=== PATIENT | male | born 2000 | race Caucasian/White ===

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

== ENCOUNTER 2021-01-11 08:54 | Emergency (ER) | payer OTHER, SELFPAY ==
[2021-01-11 09:00] VITALS: BP 143/90; PULSE 87; RESP 18; TEMP 36.8; O2SAT 98; BMI 27.8
[2021-01-11] MEDS: ondansetron 2 mg/ML SDV 2 mL 4 MG IVP (09:19)
[2021-01-11] MEDS: sodium chloride 0.9% 500 ML 999 ML IV ×2 (09:19→11:13)
[2021-01-11 09:30] LABS: Basophils % 0.4 %; Eosinophils # 0.2 10^3/uL (0.0-0.8); Eosinophils % 3.2 %; Hematocrit 45.5 % (42.0-52.0); Hemoglobin 15.1 g/dL (11.7-16.6); Lymphocytes % 21.4 %; Mean Corpuscular HGB Conc 33.2 g/dL (30.0-36.0); Mean Corpuscular Hemoglobin 31.3 pg (28.0-34.0); Mean Corpuscular Volume 94.4 fL (80-94); Mean Platelet Volume 9.4 fL (7.4-10.4); Monocytes # 0.7 10^3/uL (0.2-0.9); Monocytes % 15.1 %; Neutrophils # 2.76 10^3/uL (1.8-8.0); Neutrophils % 59.7 %; Nucleated Red Blood Cells % 0 %; Platelet Count 259 10^3/cmm (130-400); Red Blood Count 4.82 10^6/uL (4.1-5.3); Red Cell Distribution Width 11.8 % (12.1-15.1); White Blood Count 4.6 10^3/uL (4.5-13.0)
[2021-01-11 09:45] VITALS: BP 148/88; PULSE 78; RESP 16; O2SAT 98
--- NOTE | 2021-01-11 09:49 | W.ED.NAVMDI ---
HPI - Nausea/Vomiting/Diarrhea General: Chief complaint: Nausea/Vomiting/Diarrhea Stated complaint: vomiting Time Seen by Provider: 01/11/21 08:58 Source: patient Mode of arrival: ambulatory Limitations: no limitations History of Present Illness: HPI Narrative: Pleasant 20-year-old male patient presents to the emergency department with onset of nausea vomiting and one episode of diarrhea that started 01/09/2021. He denies ill contacts. He reports is trying to eat and drink fluids but continues to experience vomiting. He states took [id number] antacids without improvement. He states antacids seem to make it worse. He denies history of abdominal surgeries, reports history of seizure disorder but was taken off seizure medications approximately 6 months ago by his primary care, states did not need them. Last seizure was approximately 1 year ago. He denies abdominal pain but reports a tightness around his bellybutton, states worsens with vomiting. MD elicited complaint: nausea, vomiting and diarrhea Description of vomiting: food contents Description of diarrhea: watery Associated nausea: Yes Associated abdominal pain: Yes Location of pain: Periumbilical Severity: moderate Relieving factors: none Associated symtoms: Reports cough (States 2 days ago but stopped), fatigue, fevers/chills and nausea; Denies anxiety, change in vision, chest pain, dysuria, headache(s), malaise or palpitations Treatment prior to arrival: other OTC medicine Review of Systems General: Reports: 10 or more systems reviewed and unremarkable except in HPI and below Const: Reports: chills, change in appetite and fatigue; Denies: fever(s) or malaise Eyes: Denies: change in vision, blurry vision, eye discomfort, eye redness, increased production of tears or seeing flashes ENMT: Denies: throat pain, uvular edema, odynophagia, swelling of lips/tongue, dental pain, ear or mastoid pain, disequilibrium, nasal discharge, nasal congestion, nasal obstruction, post nasal drip or sinus pain Card: Denies: chest pain, palpitations, irregular heart rhythm, swelling of feet/ankles, dyspnea on exertion or orthopnea Resp: Denies: dyspnea, productive cough, non-productive cough, wheezing or chest congestion GI: Reports: abdominal pain, nausea, vomiting and GI cramping; Denies: hematemesis, coffee ground emesis, heartburn, diarrhea, constipation, belching, change in stool character, hematochezia or melena : Denies: difficulty urinating, dysuria, urinary urgency or urinary incontinence Musc: Denies: neck pain, back pain, joint pain or joint warmth Skin/Breast: Denies: rash, pruritus, erythema or changing lesions Neuro: Denies: headache(s), numbness in extremities, weakness in extremities, difficulty walking or behavioral changes Psych: Denies: anxiety or depression Ras/Lymph: Denies: easy bruising PFSH ED PFSH: Medical History (Updated 01/11/21 @ 12:20 by JUSTUS Lepe) Asthma Migraine Seizure disorder Vitamin D deficiency Surgical History History of angiography on brain at [facility] 2018 History of surgical procedure on eye proper using laser Left due to [place] Syndrome 2016 Leg injury 2005 left leg ran over brush hog surgical repair Family History Mother Diabetes Father Hypertension Other Depression Hyperlipidemia Denies family history of CAD (coronary artery disease) Family history of premature coronary artery disease Social History Smoking and tobacco status: never smoked Second hand smoke exposure: No Smoking risk assessment/counseling performed?: No Alcohol intake: never Desire information about alcohol rehabilitation?: No Counseling given: No Desire information about substance/drug rehabilitation?: No Counseling given: No Caregiver/support person: Yes Lives independently: No Marital status: Single Number of children: 0 Highest education level completed: 12th Grade, No Diploma service: No Current occupational status: student History of recent travel: No Current gender identity: Male Physical Exam Const: COMMON NORMALS: no acute distress, patient oriented x3, healthy appearing, alert and well nourished GENERAL APPEARANCE: cooperative, comfortable, well kempt, well developed and well hydrated; not anxious, not ill appearing and not frail appearing NUTRITIONAL APPEARANCE: thin ORIENTATION/CONSCIOUSNESS: Yes awake, Yes oriented to person, Yes oriented to place and Yes oriented to time HENMT: COMMON NORMALS: normocephalic, atraumatic, EAC's normal, TM's normal bilaterally, Normal external nose present and moist oral mucous membranes HEAD & SCALP: normal to inspection, normocephalic and atraumatic FACE & SINUS: normal facial exam, sinuses nontender and face symmetric NOSE: Normal external nose present, Normal nares present and No nasal polyps present EXTERNAL AUDITORY CANAL: EAC's normal TYMPANIC MEMBRANE: TM's normal bilaterally MOUTH: Normal oral and palatal mucosa present, lip normal and tongue normal THROAT: posterior oropharynx normal, tonsils normal and uvula midline; no uvular edema Eye: COMMON NORMALS: Equal, round and reactive pupils present, EOMs intact bilaterally and conjunctivae normal GENERAL EYE: appearance normal, both eyes and all related structures PERIORBITAL: periorbital findings normal CONJUNCTIVA: Yes conjunctivae normal PUPIL: Yes Equal, round and reactive pupils present Neck/C-Spine: COMMON NORMALS: full ROM and no lymphadenopathy GENERAL: Yes normal visual inspection and Yes trachea midline CERVICAL SPINE: Yes cervical ROM normal Lymph: LYMPHATIC: no lymphadenopathy noted Chest: COMMONS NORMALS: normal inspection of the chest and normal palpation of entire chest wall Resp: COMMON NORMALS: normal respiratory effort, No retractions, No use of accessory muscles and clear to auscultation bilaterally EFFORT & INSPECTION: Yes able to speak in complete sentences, No labored and No audible wheezes AUSCULTATION: clear to auscultation bilaterally Cardio: COMMON NORMALS: regular rate, regular rhythm, S1 normal heart sound present, S2 normal heart sound present and Peripheral pulses 2+ throughout RATE: regular rate RHYTHM: regular rhythm HEART SOUNDS: S1 normal heart sound present and S2 normal heart sound present PERIPHERAL PULSES: Peripheral pulses 2+ throughout GI: COMMON NORMALS: Normal to inspection, nondistended, normoactive bowel sounds present, Soft to palpation and non-tender INSPECTION: Yes normal to inspection, No abdominal wall ecchymosis, No abdominal distension, No central obesity and No Fluid wave present PALPATION: Yes Soft to palpation PERCUSSION: no fluid wave : COMMON NORMALS: Yes no CVA tenderness BLADDER/KIDNEY EXAM: Yes no CVA tenderness Back/Pelvis: COMMON NORMALS: no CVA tenderness and thoracic and lumbar spine normal to inspection; negative for no thoracic nor lumbar tenderness, negative for thoraco-lumbar ROM normal and negative for straight leg raise negative bilaterally Extremity: COMMON NORMALS: normal to inspection and capillary refill normal Neuro: COMMON NORMALS: patient oriented x3 and no focal motor deficits SENSORIUM/ORIENTATION: Yes alert, Yes oriented to person, Yes oriented to place and Yes oriented to time SPEECH: speech normal GAIT: Yes Normal gait present MOTOR EXAM: 5/5 motor strength present throughout Psych: COMMON NORMALS: mental status grossly normal, Normal thought process present and cooperative APPEARANCE: Yes well kempt ACTIVITY/MOTOR BEHAVIOR: Yes appropriate eye contact THOUGHT PROCESS: Normal thought process present Skin: COMMON NORMALS: no rashes or lesions noted and turgor normal GENERAL SKIN EXAM: no rashes or lesions noted and turgor normal Course Vital Signs: Vital signs: Vital Signs Temperature 98.2 F 01/11/21 09:00 Pulse Rate 78 01/11/21 09:45 Respiratory Rate 16 01/11/21 09:45 Blood Pressure 148/88 01/11/21 09:45 Pulse Oximetry 98 01/11/21 09:45 MDM - Nausea/Vomiting/Diarrhea MDM Narrative: Medical decision making narrative: 20-year-old male patient presents to the emergency department with acute nausea vomiting x48 hours. 1 L normal saline, Zofran and Pepcid was administered in the ED. CT scan of the abdomen and pelvis completed due to patient's complaint of periumbilical discomfort and nausea vomiting - no acute inflammatory process; question mesenteric adenitis as multiple lymph nodes majority subcentimeter or present. Donald was able to tolerate water and ice chips without nausea vomiting. He reports nausea completely resolved with use of Zofran and Pepcid. He reports felt much better and requests to go home. He was advised to follow-up with his primary care tomorrow if nausea persisted. He was also advised to return to the emergency department if he continued to vomit despite use of Zofran. Bilirubin noted to be slightly elevated, 1.6; lactic acid 1.0, remaining serology findings suggest mild dehydration. Lab Data: Labs: Lab Results 01/11/21 01/11/21 01/11/21 Range/Units 09:25 09:25 09:25 WBC 4.6 (4.5-13.0) 10^3/ uL RBC 4.82 (4.1-5.3) 10^6/u L Hgb 15.1 (11.7-16.6) g/dL Hct 45.5 (42.0-52.0) % MCV 94.4 H (80-94) fL MCH 31.3 (28.0-34.0) pg MCHC 33.2 (30.0-36.0) g/dL RDW 11.8 L (12.1-15.1) % Plt Count 259 (130-400) 10^3/c mm MPV 9.4 (7.4-10.4) fL Neut % (Auto) 59.7 % Lymph % (Auto) 21.4 % [place] % (Auto) 15.1 % Eos % (Auto) 3.2 % Baso % (Auto) 0.4 % Neut # (Auto) 2.76 (1.8-8.0) 10^3/u L Lymph # (Auto) 1.0 L (1.5-6.5) 10^3/u L [place] # (Auto) 0.7 (0.2-0.9) 10^3/u L Eos # (Auto) 0.2 (0.0-0.8) 10^3/u L Baso # (Auto) 0.0 (0.0-0.1) 10^3/u L Nucleated RBC % (a uto) 0 % Nucleated RBCs # 0.0 /100WBC Sodium 138 (136-145) mmol/L Potassium 3.9 (3.5-5.1) mmol/L Chloride 100 (98-107) mmol/L Carbon Dioxide 28 (22-29) mmol/L Anion Gap 13.9 (5-19) BUN 12 (6-20) mg/dL Creatinine 0.9 (0.7-1.2) mg/dL GFR Calculation 108.7 (90-130) mL/min Glucose 93 (65-115) mg/dL Calculated Osmolal ity 285 (285-295) mOsm/k g Lactate 1.0 (0.5-2.2) mmol/L Calcium 8.8 (8.5-10.5) mg/dL Total Bilirubin 1.6 H (0.15-1.2) mg/dL AST 20 (0-40) U/L ALT 13 (0-41) U/L Alkaline Phosphata se 73 (40-130) IU/L Total Protein 6.8 (6.6-8.7) g/dL Albumin 4.5 (3.5-5.2) g/dL Globulin 2.3 (1.3-4.6) g/dL Lipase 18 (13-60) U/L Urine Color (Yellow) Urine Appearance (CLEAR) Urine pH (5-7) Ur Specific Gravit y (1.005-1.030) Urine Protein (Negative) Urine Glucose (UA) (Normal) Urine Ketones (Negative) Urine Blood (Negative) Urine Nitrate (Negative) Urine Bilirubin (Negative) Urine Urobilinogen (Negative) mg/dL Ur Leukocyte Denita ase (Negative) 01/11/21 Range/Units 09:50 WBC (4.5-13.0) 10^3/ uL RBC (4.1-5.3) 10^6/u L Hgb (11.7-16.6) g/dL Hct (42.0-52.0) % MCV (80-94) fL MCH (28.0-34.0) pg MCHC (30.0-36.0) g/dL RDW (12.1-15.1) % Plt Count (130-400) 10^3/c mm MPV (7.4-10.4) fL Neut % (Auto) % Lymph % (Auto) % [place] % (Auto) % Eos % (Auto) % Baso % (Auto) % Neut # (Auto) (1.8-8.0) 10^3/u L Lymph # (Auto) (1.5-6.5) 10^3/u L [place] # (Auto) (0.2-0.9) 10^3/u L Eos # (Auto) (0.0-0.8) 10^3/u L Baso # (Auto) (0.0-0.1) 10^3/u L Nucleated RBC % (a uto) % Nucleated RBCs # /100WBC Sodium (136-145) mmol/L Potassium (3.5-5.1) mmol/L Chloride (98-107) mmol/L Carbon Dioxide (22-29) mmol/L Anion Gap (5-19) BUN (6-20) mg/dL Creatinine (0.7-1.2) mg/dL GFR Calculation (90-130) mL/min Glucose (65-115) mg/dL Calculated Osmolal ity (285-295) mOsm/k g Lactate (0.5-2.2) mmol/L Calcium (8.5-10.5) mg/dL Total Bilirubin (0.15-1.2) mg/dL AST (0-40) U/L ALT (0-41) U/L Alkaline Phosphata se (40-130) IU/L Total Protein (6.6-8.7) g/dL Albumin (3.5-5.2) g/dL Globulin (1.3-4.6) g/dL Lipase (13-60) U/L Urine Color Dark yellow (Yellow) Urine Appearance Clear (CLEAR) Urine pH 6.5 (5-7) Ur Specific Gravit y 1.015 (1.005-1.030) Urine Protein Neg (Negative) Urine Glucose (UA) Norm (Normal) Urine Ketones 2+ H (Negative) Urine Blood Neg (Negative) Urine Nitrate Negative (Negative) Urine Bilirubin Neg (Negative) Urine Urobilinogen 4 H (Negative) mg/dL Ur Leukocyte Denita ase Negative (Negative) Imaging Data^: CT Abd/Pel: Radiologist's impression: [place] [address] CT Scan Report Signed Patient: Lang Booth #: [id number] : 2000Acct#:[id number] Age/Sex: 20 MADM Date: 01/11/21 Loc: ERRoom/Bed: Attending Dr: Ordering Provider/Ordering MD: Ligia Perkins Date of Service: 01/11/21 Procedure(s): CT abdomen pelvis w con* [id number] Accession Number(s): [id number] Report Number: [id number] PROCEDURE INFORMATION: Exam: CT Abdomen And Pelvis With Contrast Exam date and time: 01/11/2021 10:39 AM Age: 20 years old Clinical indication: Abnormal findings; Abnormal lab test; Other: Elevated bilirubin; Additional info: N/v elevated bilirubin TECHNIQUE: Imaging protocol: Computed tomography of the abdomen and pelvis with contrast. Radiation optimization: All CT scans at this facility use at least one of these dose optimization techniques: automated exposure control; mA and/or kV adjustment per patient size (includes targeted exams where dose is matched to clinical indication); or iterative reconstruction. Contrast material: OMNI 300; Contrast volume: 95 ml; Contrast route: INTRAVENOUS (IV); COMPARISON: US Renal Kidney Structu* [id number] 02/24/2018 3:54 PM RADIATION DOSE METRICS: Total DLP (mGy-cm): 1465.2 FINDINGS: Pleural spaces: No acute airspace or pleural disease. Liver: No focal hepatic mass. Gallbladder and bile ducts: No cholelithiasis or biliary ductal dilatation. Pancreas: No pancreatic mass or ductal dilatation. Spleen: No splenomegaly. 14 mm accessory spleen. Adrenal glands: Unremarkable adrenals. Kidneys and ureters: Normal renal morphology. No hydronephrosis. Stomach and bowel: No significant small bowel dilatation. Prominent stool and diverticula, without pericolonic inflammation. Appendix: No acute appendicitis. Intraperitoneal space: No free fluid. Vasculature: Normal caliber of the abdominal aorta. Lymph nodes: Multiple lymph nodes, the majority of which are subcentimeter in size. Urinary bladder: Minimal bladder wall thickening. Reproductive: Unremarkable as visualized. Bones/joints: Schmorl's nodes. Soft tissues: Mild gynecomastia. CT/CT abdomen pelvis w con* [id number] IMPRESSION: 1. No acute inflammatory process in the abdomen or pelvis. 2. Additional findings as described above. Radiation Dose CTDIVOL = (mGy): DLP = 1465.2 (mGy-cm) Dictated By:Jewel Holguin MD Signed By:Jewel Holguin MDSigned Date/Time:01/11/211137 DD/ 113 Discharge Plan Discharge Patient Disposition: Home Clinical Impression: Acute nausea with nonbilious vomiting Abdominal pain Qualifiers: Abdominal location: periumbilical Qualified Code(s): R10.33 - Periumbilical pain Condition: Stable Prescriptions: New Zofran 4 mg tablet 4 mg PO Q4H 5 Days Qty: 14 RF: 0 Pepcid 20 mg tablet 20 mg PO BID Qty: 20 RF: 0 No Action amitriptyline 25 mg tablet 25 mg PO .HS RF: 0 rizatriptan 10 mg tablet See Rx Instructions PO .COMPLEX RF: 0 oxcarbazepine [Trileptal] 300 mg tablet 300 mg PO BID RF: 0 zonisamide 100 mg capsule 100 mg PO BID RF: 0 Discharge Orders: Discharge ED (Routine); Ordered 01/11/21 Ordered By: Ligia Perkins Referrals: Chas Ellsworth, WATER RESOURCES ENGINEERGabrielleC [Primary Care Provider] - Discharge Diet: Advance as tolerated and Clear Liquid Discharge Activity: Limit activity as instructed Patient Instructions: Acute Nausea and Vomiting (ED), Abdominal Pain (ED), Opioid Safety Activity Restrictions/Additional Instructions: Rest at home today and tomorrow Clear liquid diet and slowly advance as tolerated Avoid fried greasy fatty foods until improved If you continue to vomit despite use of Zofran, with continued abdominal pain, return to the emergency department Follow-up with your primary care provider if not improved over the next 24 hours Stand Alone Forms: Work/School Release Coding Level of Care Code ED Assistant Production Editor for Chg Fwd Exam Comprehensive
[2021-01-11 09:50] LABS: Alanine Aminotransferase 13 U/L (0-41); Albumin Level 4.5 g/dL (3.5-5.2); Alkaline Phosphatase 73 IU/L (40-130); Anion Gap 13.9 (5-19); Aspartate Amino Transferase 20 U/L (0-40); Blood Urea Nitrogen 12 mg/dL (6-20); Calcium 8.8 mg/dL (8.5-10.5); Carbon Dioxide 28 mmol/L (22-29); Chloride 100 mmol/L (98-107); Creatinine Clr Calc Pharmacy 152.1224; Globulin 2.3 g/dL (1.3-4.6); Glomerular Filtration Rate 108.7 mL/min (90-130); Glucose 93 mg/dL (65-115); Lipase 18 U/L (13-60); Osmolality Calculated 285 mOsm/kg (285-295); Potassium 3.9 mmol/L (3.5-5.1); Sodium 138 mmol/L (136-145); Total Bilirubin 1.6 mg/dL (0.15-1.2); Total Protein 6.8 g/dL (6.6-8.7)
[2021-01-11 10:25] LABS: Add Urine Microscopic? NO; Charge for UA Resulting for Rev
--- NOTE | 2021-01-11 10:36 | CTR_ITS ---
PROCEDURE INFORMATION: Exam: CT Abdomen And Pelvis With Contrast Exam date and time: 01/11/2021 10:39 AM Age: 20 years old Clinical indication: Abnormal findings; Abnormal lab test; Other: Elevated bilirubin; Additional info: N/v elevated bilirubin TECHNIQUE: Imaging protocol: Computed tomography of the abdomen and pelvis with contrast. Radiation optimization: All CT scans at this facility use at least one of these dose optimization techniques: automated exposure control; mA and/or kV adjustment per patient size (includes targeted exams where dose is matched to clinical indication); or iterative reconstruction. Contrast material: OMNI 300; Contrast volume: 95 ml; Contrast route: INTRAVENOUS (IV); COMPARISON: US Renal Kidney Structu* [id number] 02/24/2018 3:54 PM RADIATION DOSE METRICS: Total DLP (mGy-cm): 1465.2 FINDINGS: Pleural spaces: No acute airspace or pleural disease. Liver: No focal hepatic mass. Gallbladder and bile ducts: No cholelithiasis or biliary ductal dilatation. Pancreas: No pancreatic mass or ductal dilatation. Spleen: No splenomegaly. 14 mm accessory spleen. Adrenal glands: Unremarkable adrenals. Kidneys and ureters: Normal renal morphology. No hydronephrosis. Stomach and bowel: No significant small bowel dilatation. Prominent stool and diverticula, without pericolonic inflammation. Appendix: No acute appendicitis. Intraperitoneal space: No free fluid. Vasculature: Normal caliber of the abdominal aorta. Lymph nodes: Multiple lymph nodes, the majority of which are subcentimeter in size. Urinary bladder: Minimal bladder wall thickening. Reproductive: Unremarkable as visualized. Bones/joints: Schmorl's nodes. Soft tissues: Mild gynecomastia. CT/CT abdomen pelvis w con* [id number] IMPRESSION: 1. No acute inflammatory process in the abdomen or pelvis. 2. Additional findings as described above. Radiation Dose CTDIVOL = (mGy): DLP = 1465.2 (mGy-cm)
[2021-01-11 10:48] LABS: Bilirubin Urine Neg (Negative); Blood Urine Neg (Negative); Glucose Urine UA Norm (Normal); Ketones Urine 2+ (Negative); Leukocyte Esterase Urine Negative (Negative); Nitrate Urine Negative (Negative); Protein Urine Neg (Negative); Specific Gravity, Urine 1.015 (1.005-1.030); Urine Appearance Clear (CLEAR); Urine Color Dark Yellow (Yellow); Urobilinogen Urine 4 mg/dL (Negative); pH Urine 6.5 (5-7)
[2021-01-11] MEDS: iohexol 300 mg/mL 100 mL Btl IV (10:48)
[2021-01-11 12:00] VITALS: BP 118/78; PULSE 88; RESP 18; O2SAT 98
[2021-01-11] MEDS: famotidine 20 mg Tablet 40 MG PO (12:01)
[2021-01-11 12:43] VITALS: BP 118/78; PULSE 88; RESP 18; O2SAT 98
== END 2021-01-11 12:43 | disposition home or self-care (01) ==
PROVIDERS: Emergency Provider Nurse Practitioner Family; PCP Nurse Practitioner
DX: R11.2 Nausea with vomiting, unspecified (principal); R10.33 Periumbilical pain
CPT/HCPCS: 74177; 80053; 81003; 83605; 83690; 85025; 96374; 99283; J2405; J7040; Q9967

== ENCOUNTER → 2021-03-10 08:43 | Outpatient (BNVA) | payer OTHER, SELFPAY | PROVIDERS: PCP Nurse Practitioner; Visit Provider Nurse Practitioner Family | DX: J02.9 Acute pharyngitis, unspecified (principal); Z11.52 Encounter for screening for COVID-19 | CPT/HCPCS: 87071; 87635; 87880 ==

== ENCOUNTER → 2021-08-17 10:01 | Outpatient (BNVA) | payer OTHER, SELFPAY | PROVIDERS: PCP Nurse Practitioner; Visit Provider Nurse Practitioner Family | DX: Z20.822 Contact with and (suspected) exposure to COVID-19 (principal) | CPT/HCPCS: 87635 ==

== ENCOUNTER → 2022-01-29 09:23 | Outpatient (BNVA) | payer OTHER, SELFPAY | PROVIDERS: PCP Nurse Practitioner; Visit Provider Nurse Practitioner | DX: K52.9 Noninfective gastroenteritis and colitis, unspecified (principal) | CPT/HCPCS: 81000 ==

== ENCOUNTER → 2022-06-22 15:50 | Outpatient (BNVA) | payer OTHER, SELFPAY | PROVIDERS: PCP Nurse Practitioner; Visit Provider Nurse Practitioner | DX: R11.10 Vomiting, unspecified (principal) | CPT/HCPCS: 74018; 80053; 81000; 85025 ==

== ENCOUNTER 2022-08-22 13:40 | Emergency (ER) | payer OTHER, SELFPAY ==
[2022-08-22 13:59] VITALS: PULSE 93; RESP 18; TEMP 36.4; O2SAT 97
[2022-08-22 14:45] LABS: Basophils # 0.1 10^3/uL (0.0-0.1); Basophils % 1.1 %; Eosinophils # 0.4 10^3/uL (0.0-0.8); Eosinophils % 5.6 %; Hematocrit 44.7 % (42.0-52.0); Hemoglobin 14.6 g/dL (11.7-16.6); Lymphocytes # 1.9 10^3/uL (0.8-4.8); Lymphocytes % 30.9 %; Mean Corpuscular HGB Conc 32.7 g/dL (30.0-36.0); Mean Corpuscular Hemoglobin 31.6 pg (28.0-34.0); Mean Corpuscular Volume 96.8 fl (80-94); Mean Platelet Volume 9.8 fL (7.4-10.4); Monocytes # 0.6 10^3/uL (0.2-0.9); Monocytes % 10.1 %; Neutrophils # 3.25 10^3/uL (1.8-7.7); Nucleated Red Blood Cells % 0 %; Platelet Count 276 10^3/cmm (130-400); Red Blood Count 4.62 10^6/uL (4.1-5.3); Red Cell Distribution Width 11.9 % (12.1-15.1); White Blood Count 6.3 10^3/uL (4.0-10.0)
[2022-08-22 15:07] LABS: Alanine Aminotransferase 16 U/L (0-41); Albumin Level 4.7 g/dL (3.5-5.2); Alkaline Phosphatase 73 U/L (40-130); Anion Gap 13.3 (5-19); Aspartate Amino Transferase 24 U/L (0-40); Blood Urea Nitrogen 15 mg/dL (6-20); Calcium 9.5 mg/dL (8.5-10.5); Carbon Dioxide 27 mmol/L (22-29); Chloride 102 mmol/L (98-107); Globulin 2.8 g/dL (1.3-4.6); Glomerular Filtration Rate 106.5 mL/min (90-130); Glucose 86 mg/dL (65-115); Lipase 19 U/L (13-60); Osmolality Calculated 286 mOsm/kg (285-295); Potassium 4.3 mmol/L (3.5-5.1); Sodium 138 mmol/L (136-145); Total Bilirubin 1.2 mg/dL (0.15-1.2); Total Protein 7.5 g/dL (6.6-8.7)
--- NOTE | 2022-08-22 15:09 | W.ED.ABDPA2 ---
Documented by User: DARION Rocha 08/23/22 10:23 HPI - Abdominal Pain General: Chief Complaint: Abdominal Pain Stated Complaint: LRQ abd pain Time Seen by Provider: 08/22/22 13:53 History of Present Illness: Patient is a 22-year-old male who comes to the ED with abdominal pain. Symptoms started this morning. Pain located in the right lower quadrant of the abdomen. When pain hit this morning he described it as an intense sharp pain. But it went away after few minutes. He then had lunch and says his pain started back up after eating. He rates his pain currently a 3 out of 10. This pain improved after he had a normal bowel movement. Denies any fever, chills, nausea/vomiting, diarrhea, dysuria or hematuria. Denies any past surgical history in the abdomen. Associated Symptoms: Denies chills, constipation, diarrhea, dysuria, fever(s), hematochezia, hematuria, nausea and vomiting Review of Systems Const: Denies: fever(s), chills or fatigue Eyes: Denies: change in vision or eye discomfort ENMT: Denies: throat pain, odynophagia, nasal discharge or nasal congestion Card: Denies: chest pain, palpitations, edema, swelling of feet/ankles, dyspnea on exertion or orthopnea Resp: Denies: dyspnea, productive cough or non-productive cough GI: Reports: abdominal pain; Denies: nausea, vomiting, diarrhea, constipation or hematochezia : Denies: flank pain, difficulty urinating, dysuria or hematuria Musc: Denies: neck pain, back pain or extremity swelling Skin/Breast: Denies: rash or new lesions Neuro: Denies: headache(s), numbness in extremities or weakness in extremities PFSH ED PFSH: Medical History Asthma Migraine Seizure disorder Vitamin D deficiency Surgical History History of angiography on brain at [facility] 2018 History of surgical procedure on eye proper using laser 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 Leg injury 2005 left leg ran over brush hog surgical repair Family History Mother Diabetes Father Hypertension Other Depression Hyperlipidemia Denies family history of CAD (coronary artery disease) Family history of premature coronary artery disease Social History Smoking and tobacco status: never smoked Second hand smoke exposure: No Smoking risk assessment/counseling performed?: No Alcohol intake: never Desire information about alcohol rehabilitation?: No Counseling given: No Desire information about substance/drug rehabilitation?: No Counseling given: No Adopted: No Caregiver/support person: Yes Lives independently: No Household members: family Housing: House Marital status: Single Number of children: 0 Highest education level completed: High School Graduate service: No Current occupational status: student History of recent travel: No Current gender identity: Male Physical Exam Const: COMMON NORMALS: no acute distress, patient oriented x3, healthy appearing and alert GENERAL APPEARANCE: cooperative and comfortable HENMT: COMMON NORMALS: normocephalic HEAD & SCALP: normocephalic MOUTH: Normal oral and palatal mucosa present THROAT: posterior oropharynx normal and uvula midline Neck/C-Spine: COMMON NORMALS: supple GENERAL: Yes normal visual inspection Resp: COMMON NORMALS: normal respiratory effort, No retractions, No use of accessory muscles and clear to auscultation bilaterally AUSCULTATION: clear to auscultation bilaterally Cardio: COMMON NORMALS: regular rate, regular rhythm, S1 normal heart sound present, S2 normal heart sound present, No gallops present (Cardio), No clicks present (Cardio), No murmurs present (Cardio) and Peripheral pulses 2+ throughout RATE: regular rate RHYTHM: regular rhythm HEART SOUNDS: S1 normal heart sound present and S2 normal heart sound present PERIPHERAL PULSES: Peripheral pulses 2+ throughout GI: COMMON NORMALS: Normal to inspection, nondistended, normoactive bowel sounds present, Soft to palpation and no masses PALPATION: Yes Soft to palpation and Yes Tenderness to palpation present (GI) Details: RLQ : COMMON NORMALS: Yes no CVA tenderness BLADDER/KIDNEY EXAM: Yes no CVA tenderness Back/Pelvis: COMMON NORMALS: no CVA tenderness Extremity: COMMON NORMALS: normal to inspection Neuro: COMMON NORMALS: patient oriented x3 SENSORIUM/ORIENTATION: Yes alert GAIT: Yes Normal gait present Skin: GENERAL SKIN EXAM: dry skin Course Vital Signs: Vital signs: Vital Signs Temperature 97.6 F 08/22/22 13:59 Pulse Rate 93 08/22/22 13:59 Respiratory Rate 18 08/22/22 13:59 Pulse Oximetry 97 08/22/22 13:59 Oxygen Delivery Me thod 08/22/22 13:59 MDM - Abdominal Pain Medical Decision Making Patient is a 22-year-old male who comes to the ED with abdominal pain. Symptoms started this morning. Pain located in the right lower quadrant of the abdomen. When pain hit this morning he described it as an intense sharp pain. But it went away after few minutes. He then had lunch and says his pain started back up after eating. He rates his pain currently a 3 out of 10. Vitals are stable. Patient appears nontoxic in no acute distress or pain. He has some mild tenderness to the right lower quadrant of the abdomen but rest of exam is benign. Labs were all unremarkable. CT of abdomen pelvis showed no acute findings. Patient was diagnosed with abdominal pain and was stable for discharge home. Told to follow-up with his PCP within the next week for reevaluation. Return to ED precautions given. Patient understood and agreed with plan. Lab Data I reviewed the patient's lab results. 08/22/22 14:37 08/22/22 14:37 Labs/Radiology: Radiology Impressions Abdomen/Pelvis CT 08/22/22 15:13 IMPRESSION: There are no acute concerning abnormalities. Laboratory Results WBC 6.3 10^3/uL (4.0-10.0) 08/22/22 14:37 RBC 4.62 10^6/uL (4.1-5.3) 08/22/22 14:37 Hgb 14.6 g/dL (11.7-16.6) 08/22/22 14:37 Hct 44.7 % (42.0-52.0) 08/22/22 14:37 MCV 96.8 fl (80-94) H 08/22/22 14:37 MCH 31.6 pg (28.0-34.0) 08/22/22 14:37 MCHC 32.7 g/dL (30.0-36.0) 08/22/22 14:37 RDW 11.9 % (12.1-15.1) L 08/22/22 14:37 Plt Count 276 10^3/cmm (130-400) 08/22/22 14:37 MPV 9.8 fL (7.4-10.4) 08/22/22 14:37 Neut % (Auto) 52.0 % 08/22/22 14:37 Lymph % (Auto) 30.9 % 08/22/22 14:37 [place] % (Auto) 10.1 % 08/22/22 14:37 Eos % (Auto) 5.6 % 08/22/22 14:37 Baso % (Auto) 1.1 % 08/22/22 14:37 Neut # (Auto) 3.25 10^3/uL (1.8-7.7) 08/22/22 14:37 Lymph # (Auto) 1.9 10^3/uL (0.8-4.8) 08/22/22 14:37 [place] # (Auto) 0.6 10^3/uL (0.2-0.9) 08/22/22 14:37 Eos # (Auto) 0.4 10^3/uL (0.0-0.8) 08/22/22 14:37 Baso # (Auto) 0.1 10^3/uL (0.0-0.1) 08/22/22 14:37 Nucleated RBC % (auto) 0 % 08/22/22 14:37 Nucleated RBCs # 0.0 /100WBC 08/22/22 14:37 Sodium 138 mmol/L (136-145) 08/22/22 14:37 Potassium 4.3 mmol/L (3.5-5.1) 08/22/22 14:37 Chloride 102 mmol/L (98-107) 08/22/22 14:37 Carbon Dioxide 27 mmol/L (22-29) 08/22/22 14:37 Anion Gap 13.3 (5-19) 08/22/22 14:37 BUN 15 mg/dL (6-20) 08/22/22 14:37 Creatinine 0.9 mg/dL (0.7-1.2) 08/22/22 14:37 GFR Calculation 106.5 mL/min (90-130) 08/22/22 14:37 Glucose 86 mg/dL (65-115) 08/22/22 14:37 Calculated Osmolality 286 mOsm/kg (285-295) 08/22/22 14:37 Calcium 9.5 mg/dL (8.5-10.5) 08/22/22 14:37 Total Bilirubin 1.2 mg/dL (0.15-1.2) 08/22/22 14:37 AST 24 U/L (0-40) 08/22/22 14:37 ALT 16 U/L (0-41) 08/22/22 14:37 Alkaline Phosphatase 73 U/L (40-130) 08/22/22 14:37 Total Protein 7.5 g/dL (6.6-8.7) 08/22/22 14:37 Albumin 4.7 g/dL (3.5-5.2) 08/22/22 14:37 Globulin 2.8 g/dL (1.3-4.6) 08/22/22 14:37 Lipase 19 U/L (13-60) 08/22/22 14:37 Urine Color Yellow (Yellow) 08/22/22 15:20 Urine Appearance Cloudy (CLEAR) A 08/22/22 15:20 Urine pH 8 (5-7) H 08/22/22 15:20 Ur Specific [place] 1.015 (1.005-1.030) 08/22/22 15:20 Urine Protein Neg (Negative) 08/22/22 15:20 Urine Glucose (UA) Norm (Normal) 08/22/22 15:20 Urine Ketones Negative (Negative) 08/22/22 15:20 Urine Blood Neg (Negative) 08/22/22 15:20 Urine Nitrate Negative (Negative) 08/22/22 15:20 Urine Bilirubin Neg (Negative) 08/22/22 15:20 Prot Sulfosalicylic Acd Negative (Negative) 08/22/22 15:20 Urine Urobilinogen Norm mg/dL (Negative) 08/22/22 15:20 Ur Leukocyte Esterase Negative (Negative) 08/22/22 15:20 Urine RBC None /hpf (0-2) 08/22/22 15:20 Urine WBC 0-4 /hpf (0-5) H 08/22/22 15:20 Ur Squamous Epith Cells None /hpf (0-5) 08/22/22 15:20 Amorphous Sediment 3+ /hpf 08/22/22 15:20 Urine Bacteria Trace /hpf (NONE) 08/22/22 15:20 Discharge Plan Discharge Patient Disposition: Home Clinical Impression: Abdominal pain Qualifiers: Abdominal location: right lower quadrant Qualified Code(s): R10.31 - Right lower quadrant pain Condition: Stable Prescriptions: No Action rizatriptan 10 mg tablet See Rx Instructions PO .COMPLEX Rx Instructions: 10mg tablet, 1 oral at onset of headache, may repeat after 2 hours if needed meclizine 25 mg tablet 25 mg PO TID PRN (Reason: motion sickness) Qty: 30 0RF famotidine [Pepcid] 20 mg tablet 20 mg PO DAILY Qty: 30 0RF Discharge Orders: Discharge ED (Routine); Ordered 08/22/22 Ordered By: Maicol Sanchez Referrals: Chas Ellsworth, MIGUEC [Primary Care Provider] - Discharge Diet: Regular Discharge Activity: Increase activity as tolerated Patient Instructions: Abdominal Pain (ED) Activity Restrictions/Additional Instructions: Follow-up with medical provider as directed in the next 5 to 7 days for reevaluation. Take [id number] Tylenol or ibuprofen help with pain. Drink plenty fluids and stay hydrated. Return to the ER or your medical provider if condition worsens. Please read and understand discharge instructions. Thank you for choosing [facility] for your healthcare needs today. Please realize this is an emergency room and that we are providing you with a medical screening exam and this may not be complete and all inclusive of all the testing and or work up that you may need to determine your ailment or severity of your illness. It is very important that you follow up as instructed or that you return to the Emergency Department should you have concerns or if your condition changes or worsens in any way. 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 Leg injury 2005 left leg ran over brush hog surgical repair Family History Mother Diabetes Father Hypertension Other Depression Hyperlipidemia Denies family history of CAD (coronary artery disease) Family history of premature coronary artery disease Social History Smoking and tobacco status: never smoked Second hand smoke exposure: No Smoking risk assessment/counseling performed?: No Alcohol intake: never Desire information about alcohol rehabilitation?: No Counseling given: No Desire information about substance/drug rehabilitation?: No Counseling given: No Adopted: No Caregiver/support person: Yes Lives independently: No Household members: family Housing: House Marital status: Single Number of children: 0 Highest education level completed: High School Graduate service: No Current occupational status: student History of recent travel: No Current gender identity: Male Course Vital Signs: Vital signs: Vital Signs Temperature 97.6 F 08/22/22 13:59 Pulse Rate 93 08/22/22 13:59 Respiratory Rate 18 08/22/22 13:59 Pulse Oximetry 97 08/22/22 13:59 Oxygen Delivery Me thod 08/22/22 13:59 MDM - Abdominal Pain Medical Decision Making Patient is a 22-year-old male who comes to the ED with abdominal pain. Symptoms started this morning. Pain located in the right lower quadrant of the abdomen. When pain hit this morning he described it as an intense sharp pain. But it went away after few minutes. He then had lunch and says his pain started back up after eating. He rates his pain currently a 3 out of 10. Vitals are stable. Patient appears nontoxic in no acute distress or pain. He has some mild tenderness to the right lower quadrant of the abdomen but rest of exam is benign. Labs were all unremarkable. CT of abdomen pelvis showed no acute findings. Patient was diagnosed with abdominal pain and was stable for discharge home. Told to follow-up with his PCP within the next week for reevaluation. Return to ED precautions given. Patient understood and agreed with plan. Chart reviewed and patient discussed with midlevel. Agree with assessment and plan. Lab Data 08/22/22 14:37 08/22/22 14:37 Labs/Radiology: Radiology Impressions Abdomen/Pelvis CT 08/22/22 15:13 IMPRESSION: There are no acute concerning abnormalities. Laboratory Results WBC 6.3 10^3/uL (4.0-10.0) 08/22/22 14:37 RBC 4.62 10^6/uL (4.1-5.3) 08/22/22 14:37 Hgb 14.6 g/dL (11.7-16.6) 08/22/22 14:37 Hct 44.7 % (42.0-52.0) 08/22/22 14:37 MCV 96.8 fl (80-94) H 08/22/22 14:37 MCH 31.6 pg (28.0-34.0) 08/22/22 14:37 MCHC 32.7 g/dL (30.0-36.0) 08/22/22 14:37 RDW 11.9 % (12.1-15.1) L 08/22/22 14:37 Plt Count 276 10^3/cmm (130-400) 08/22/22 14:37 MPV 9.8 fL (7.4-10.4) 08/22/22 14:37 Neut % (Auto) 52.0 % 08/22/22 14:37 Lymph % (Auto) 30.9 % 08/22/22 14:37 [place] % (Auto) 10.1 % 08/22/22 14:37 Eos % (Auto) 5.6 % 08/22/22 14:37 Baso % (Auto) 1.1 % 08/22/22 14:37 Neut # (Auto) 3.25 10^3/uL (1.8-7.7) 08/22/22 14:37 Lymph # (Auto) 1.9 10^3/uL (0.8-4.8) 08/22/22 14:37 [place] # (Auto) 0.6 10^3/uL (0.2-0.9) 08/22/22 14:37 Eos # (Auto) 0.4 10^3/uL (0.0-0.8) 08/22/22 14:37 Baso # (Auto) 0.1 10^3/uL (0.0-0.1) 08/22/22 14:37 Nucleated RBC % (auto) 0 % 08/22/22 14:37 Nucleated RBCs # 0.0 /100WBC 08/22/22 14:37 Sodium 138 mmol/L (136-145) 08/22/22 14:37 Potassium 4.3 mmol/L (3.5-5.1) 08/22/22 14:37 Chloride 102 mmol/L (98-107) 08/22/22 14:37 Carbon Dioxide 27 mmol/L (22-29) 08/22/22 14:37 Anion Gap 13.3 (5-19) 08/22/22 14:37 BUN 15 mg/dL (6-20) 08/22/22 14:37 Creatinine 0.9 mg/dL (0.7-1.2) 08/22/22 14:37 GFR Calculation 106.5 mL/min (90-130) 08/22/22 14:37 Glucose 86 mg/dL (65-115) 08/22/22 14:37 Calculated Osmolality 286 mOsm/kg (285-295) 08/22/22 14:37 Calcium 9.5 mg/dL (8.5-10.5) 08/22/22 14:37 Total Bilirubin 1.2 mg/dL (0.15-1.2) 08/22/22 14:37 AST 24 U/L (0-40) 08/22/22 14:37 ALT 16 U/L (0-41) 08/22/22 14:37 Alkaline Phosphatase 73 U/L (40-130) 08/22/22 14:37 Total Protein 7.5 g/dL (6.6-8.7) 08/22/22 14:37 Albumin 4.7 g/dL (3.5-5.2) 08/22/22 14:37 Globulin 2.8 g/dL (1.3-4.6) 08/22/22 14:37 Lipase 19 U/L (13-60) 08/22/22 14:37 Urine Color Yellow (Yellow) 08/22/22 15:20 Urine Appearance Cloudy (CLEAR) A 08/22/22 15:20 Urine pH 8 (5-7) H 08/22/22 15:20 Ur Specific [place] 1.015 (1.005-1.030) 08/22/22 15:20 Urine Protein Neg (Negative) 08/22/22 15:20 Urine Glucose (UA) Norm (Normal) 08/22/22 15:20 Urine Ketones Negative (Negative) 08/22/22 15:20 Urine Blood Neg (Negative) 08/22/22 15:20 Urine Nitrate Negative (Negative) 08/22/22 15:20 Urine Bilirubin Neg (Negative) 08/22/22 15:20 Prot Sulfosalicylic Acd Negative (Negative) 08/22/22 15:20 Urine Urobilinogen Norm mg/dL (Negative) 08/22/22 15:20 Ur Leukocyte Esterase Negative (Negative) 08/22/22 15:20 Urine RBC None /hpf (0-2) 08/22/22 15:20 Urine WBC 0-4 /hpf (0-5) H 08/22/22 15:20 Ur Squamous Epith Cells None /hpf (0-5) 08/22/22 15:20 Amorphous Sediment 3+ /hpf 08/22/22 15:20 Urine Bacteria Trace /hpf (NONE) 08/22/22 15:20 Discharge Plan Discharge Patient Disposition: Home Clinical Impression: Abdominal pain Qualifiers: Abdominal location: right lower quadrant Qualified Code(s): R10.31 - Right lower quadrant pain Condition: Stable Prescriptions: No Action rizatriptan 10 mg tablet See Rx Instructions PO .COMPLEX Rx Instructions: 10mg tablet, 1 oral at onset of headache, may repeat after 2 hours if needed meclizine 25 mg tablet 25 mg PO TID PRN (Reason: motion sickness) Qty: 30 0RF famotidine [Pepcid] 20 mg tablet 20 mg PO DAILY Qty: 30 0RF Discharge Orders: Discharge ED (Routine); Ordered 08/22/22 Ordered By: Maicol Sanchez Referrals: Chas Ellsworth, [employer] [Primary Care Provider] - Discharge Diet: Regular Discharge Activity: Increase activity as tolerated Patient Instructions: Abdominal Pain (ED) Activity Restrictions/Additional Instructions: Follow-up with medical provider as directed in the next 5 to 7 days for reevaluation. Take [id number] Tylenol or ibuprofen help with pain. Drink plenty fluids and stay hydrated. Return to the ER or your medical provider if condition worsens. Please read and understand discharge instructions. Thank you for choosing [facility] for your healthcare needs today. Please realize this is an emergency room and that we are providing you with a medical screening exam and this may not be complete and all inclusive of all the testing and or work up that you may need to determine your ailment or severity of your illness. It is very important that you follow up as instructed or that you return to the Emergency Department should you have concerns or if your condition changes or worsens in any way. Coding Level of Care Code ED Car Repairer for Violet Fwd Exam Comprehensive
--- NOTE | 2022-08-22 15:13 | CTR_ITS ---
PROCEDURE INFORMATION: Exam: CT Abdomen And Pelvis With Contrast Exam date and time: 08/22/2022 3:46 PM Age: 22 years old Clinical indication: Abdominal pain; Additional info: Rlq abdominal pain TECHNIQUE: Imaging protocol: Computed tomography of the abdomen and pelvis with contrast. Radiation optimization: All CT scans at this facility use at least one of these dose optimization techniques: automated exposure control; mA and/or kV adjustment per patient size (includes targeted exams where dose is matched to clinical indication); or iterative reconstruction. Contrast material: OMNIPAQUE 350; Contrast volume: 100 ml; Contrast route: INTRAVENOUS (IV); COMPARISON: CT abdomen pelvis w con* [id number] 01/11/2021 11:02 AM RADIATION DOSE METRICS: Total DLP (mGy-cm): 712.43 FINDINGS: Liver: Findings consistent with fatty infiltration of the liver are identified. Gallbladder and bile ducts: Normal. No calcified stones. No ductal dilation. Pancreas: Normal. No ductal dilation. Spleen: Normal. No splenomegaly. Adrenal glands: Normal. No mass. Kidneys and ureters: Normal. No hydronephrosis. Stomach and bowel: Unremarkable. No obstruction. No mucosal thickening. Appendix: The appendix is visualized and appears normal. Intraperitoneal space: Unremarkable. No free air. No significant fluid collection. Vasculature: Unremarkable. No abdominal aortic aneurysm. Lymph nodes: Unremarkable. No enlarged lymph nodes. Urinary bladder: Unremarkable as visualized. Reproductive: Unremarkable as visualized. Bones/joints: Unremarkable. No acute fracture. Soft tissues: Unremarkable. CT/CT abdomen pelvis w con* [id number] IMPRESSION: There are no acute concerning abnormalities.
[2022-08-22 15:41] LABS: Add Urine Microscopic? YES; Amorphous Sediment Urine 3+ /hpf; Bacteria Urine TRACE /hpf; Bilirubin Urine Neg (Negative); Blood Urine Neg (Negative); Glucose Urine UA Norm (Normal); Ketones Urine Negative (Negative); Leukocyte Esterase Urine Negative (Negative); Nitrate Urine Negative (Negative); Protein Urine Neg (Negative); Specific Gravity, Urine 1.015 (1.005-1.030); Sulfosalicylic Acid Urine Negative (Negative); Urine Appearance Cloudy (CLEAR); Urine Color Yellow (Yellow); Urobilinogen Urine Norm (Negative); WBC Urine 0-4 /hpf (0-5); pH Urine 8 (5-7)
[2022-08-22 15:42] LABS: Add Urine Culture? No
[2022-08-22] MEDS: iohexol 350 mg/mL 500 mL Btl (per mL) IV (15:53)
== END 2022-08-22 15:00 | disposition home or self-care (01) ==
PROVIDERS: Emergency Provider Physician Assistant; PCP Nurse Practitioner
DX: R10.31 Right lower quadrant pain (principal)
CPT/HCPCS: 36415; 74177; 80053; 81001; 83690; 85025; 99284; Q9967

== ENCOUNTER → 2023-08-30 10:35 | Outpatient (BNVA) | payer BC, SELFPAY | PROVIDERS: PCP Nurse Practitioner; Visit Provider Nurse Practitioner Family | DX: R05.9 Cough, unspecified (principal); R50.9 Fever, unspecified; U07.1 COVID-19 | CPT/HCPCS: 87400; 87426 ==